=== PATIENT | male | born 1980 | race African-American/Black ===

== ENCOUNTER 2023-11-24 23:10 | Emergency (ER) | payer OTHER ==
[~2023-11-24] VITALS: Ht 180.3 cm; Wt 70.3 kg
[2023-11-24 23:21] VITALS: TEMP 99; O2SAT 99
[2023-11-24] MEDS ORDERED: CLONIDINE HCL 0.1 MG TABLET ONE (23:37)
[2023-11-24 23:54] VITALS: BP 162/101
[2023-11-24] MEDS: CLONIDINE HCL 0.1 MG TABLET PO ONE (23:54)
== END 2023-11-25 00:41 | disposition home or self-care (01) ==
LOC: ER 23:14
DX: T82.898A Other specified complication of vascular prosthetic devices, implants and grafts, initial encounter (principal); I13.2 Hypertensive heart and chronic kidney disease with heart failure and with stage 5 chronic kidney disease, or end stage renal disease; N18.6 End stage renal disease; I50.9 Heart failure, unspecified; F20.9 Schizophrenia, unspecified; F19.10 Other psychoactive substance abuse, uncomplicated; F17.200 Nicotine dependence, unspecified, uncomplicated; Z99.2 Dependence on renal dialysis; Y84.8 Other medical procedures as the cause of abnormal reaction of the patient, or of later complication, without mention of misadventure at the time of the procedure; Y92.89 Other specified places as the place of occurrence of the external cause